=== PATIENT | female | born 2005 | race Caucasian/White ===

== ENCOUNTER 2024-05-09 11:11 | Emergency (ER) | payer SELFPAY ==
[2024-05-09 12:33] LABS: #Basophils 0.05 10x3/uL (0.0-0.2); #Eosinophils 0.15 10x3/uL (0.0-0.5); #Monocytes 0.49 10x3/uL (0.0-1.1); #Neutrophils 5.36 10x3/uL (1.5-8.4); %Basophils 0.7 % (0.0-2.0); %Lymphocytes 20.6 % (18.0-47.0); %Monocytes 6.4 % (0.0-10.0); %Neutrophils 69.9 % (40.0-75.0); Hemoglobin 13.1 g/dL (12.0-15.5); Mean Corpuscular Hemoglobin 27.4 pg (27.0-33.0); Mean Corpuscular Volume 85.8 fL (81.6-98.3); Mean Platelet Volume 10.3 fL (7.4-10.4); Platelet Count 281 10x3/uL (150-450); RBC Distribution Width 13.4 % (11.5-14.5); Red Blood Cell (RBC) Count 4.78 10x6/uL (3.90-5.03); White Blood Cell (WBC) Count 7.7 10x3/uL (3.5-10.5)
[2024-05-09 12:39] LABS: Anion Gap 14 mmol/L (10-20); BUN (Urea Nitrogen) 9 mg/dL (7.0-18.7); Calc. Creatinine Clearance 0 mL/min (70-130); Calcium 9.4 mg/dL (7.8-10.44); Carbon Dioxide 24 mmol/L (22-29); Chloride 104 mmol/L (98-107); Estimated GFR 115; Glucose 88 mg/dL (70-105); Potassium 3.6 mmol/L (3.5-5.1); Sodium 138 mmol/L (136-145)
[2024-05-09 13:12] LABS: Bilirubin Neg (Negative); Blood, Urine 250 (Negative); Clarity Clear (Clear); Glucose, Urine (Dipstick) Normal (Negative); Ketone, Urine 15 mg/dL (Negative); Leukocyte 25 (Negative); Nitrite Negative (Negative); Protein, Urine (Dipstick) 30 mg/dl (Neg-Trace); Specific Gravity, Urine 1.015 (1.005-1.030)
[2024-05-09 13:34] LABS: Bacteria/HPF 2+ HPF (None Seen); CAUTI Indications for Culture Pelvic or flank pain; RBC/HPF 21-50 HPF (0-3); Squamous Epithelial 0-3 HPF (0-3); WBC/HPF 0-3 HPF (0-3)
[2024-05-09 13:35] LABS: Urine Culture Reflex No No
[2024-05-09 13:40] LABS: Pregnancy Test - Urine (BHCG) Negative (Negative); Pregu Control Background? CLEAR/WHITE (CLR/WHITE); Pregu Control Bar Appear? YES (CONTROL BAR); Specific Gravity 1.015 (1.002-1.036)
[2024-05-09] MEDS ORDERED: Ketorolac Tromethamine 30 MG (1 mL) VIAL ONE (13:49)
[2024-05-09] MEDS ORDERED: Ondansetron PF 4 MG/2 ML Vial ONE (13:49)
[2024-05-09] MEDS ORDERED: Tranexamic Acid 1,000 MG/10 ML VIAL ONE (13:49)
== END 2024-05-09 16:15 | disposition home or self-care (01) ==
LOC: CSHERS 11:11
DX: N92.0 Excessive and frequent menstruation with regular cycle (principal); N94.6 Dysmenorrhea, unspecified; R11.2 Nausea with vomiting, unspecified
CPT/HCPCS: 36415; 76856; 80048; 81001; 81025; 85025; 87086; 96365; 96375; J1885; J2405